=== PATIENT | female | born 1935 | race American Indian/Alaskan Native ===

== ENCOUNTER 2016-12-22 10:46 | Outpatient (CLI) | payer MEDICARE ==
[2016-12-22 11:44] LABS: Hematocrit 35.9 % (30.3-42.9); Hemoglobin 11.6 gm/dl (10.1-14.3); Mean Corpuscular HGB Conc 32 % (30-34); Mean Corpuscular Hemoglobin 29 pg (28-32); Mean Corpuscular Volume 89 fl (79-97); Platelet Count 412 K/mm3 (140-440); Red Blood Count 4.03 M/mm3 (3.65-5.03); Red Cell Distribution Width 14.8 % (13.2-15.2); White Blood Count 6.1 K/mm3 (4.5-11.0)
[2016-12-22 11:48] LABS: Anion Gap 20 mmol/L; Blood Urea Nitrogen 10 mg/dL (7-17); Calcium 9.5 mg/dL (8.4-10.2); Carbon Dioxide 25 mmol/L (22-30); Chloride 98.7 mmol/L (98-107); Glucose 112 mg/dL (65-100); Potassium 3.5 mmol/L (3.6-5.0); Sodium 140 mmol/L (137-145); Uric Acid 5.6 mg/dL (3.5-7.6)
[2016-12-22 14:40] LABS: Basophils Body Fluid 0 %; Eosinophils Body Fluid 0 %; Reactive Lymph Body Fluid 0 %
== END 2016-12-22 10:47 | disposition home or self-care (01) ==
LOC: LAB 10:46
PROVIDERS: ATTEND Specialist
DX: M25.462 Effusion, left knee (principal); I10 Essential (primary) hypertension; E78.00 Pure hypercholesterolemia, unspecified; E11.9 Type 2 diabetes mellitus without complications; Z79.84 Long term (current) use of oral hypoglycemic drugs; Z79.899 Other long term (current) drug therapy
CPT/HCPCS: 36415; 80048; 84550; 85027; 87116; 89051

== ENCOUNTER 2020-06-16 09:48 | Outpatient (CLI) | payer MEDICARE ==
[2020-06-16 10:45] LABS: Blood Urea Nitrogen 7 mg/dL (7-17)
--- NOTE | 2020-06-16 13:18 | Cat Scan Report ---
CT CHEST WITHOUT IV CONTRAST INDICATION: MALIGNANT NEOPLASM. COMPARISON: None available. TECHNIQUE: All CT scans at this location are performed using CT dose reduction for ALARA by means of automated e xposure control. Axial CT images were obtained through the chest. FINDINGS: Upper Abdomen: No acute abnormality. Skeletal System: No acute abnormality. Chest: Great Vessels: No acute abnormality. Heart: Heart size is normal. There is advanced coronary artery calcification. Mediastinum & Flor: No significant abnormality. Lungs: Within the right lower lobe on series 3 image 191, there is an 8 mm noncalcified nodule. There are couple punctate calcified granulomas in the left lower No consolidation. Pleura: No significant pleural effusion. No pneumothorax. Additional Findings: There has been right mastectomy. There is mild scarring in the right axilla. IMPRESSION: 1. Single incidental pulmonary nodule(s) in the right lower lobe measuring 8 mm with solid characteri stics. - Recommendation according to Fleischner Society 2017 Guidelines: Low Risk Patient: CT at 6-12 months , then consider CT at 18-24 months; High Risk Patient: CT at 6-12 months, then CT at 18-24 months Signer Name: Iftikhar Carbajal MD Signed: 06/16/2020 1:14 PM Workstation Name: [id number]
== END 2020-06-16 09:49 | disposition home or self-care (01) ==
LOC: CT 09:48
PROVIDERS: ATTEND Surgery
DX: Z85.3 Personal history of malignant neoplasm of breast (principal)
CPT/HCPCS: 36415; 71250; 82565; 84520